=== PATIENT | female | born 1990 | race Caucasian/White ===

== ENCOUNTER 2025-02-15 11:50 | Inpatient (IN) | payer BC ==
[2025-02-15] MEDS ORDERED: Sodium Chloride 0.9% 10 ML Syringe FLUSH PRN (14:04)
[2025-02-15] MEDS ORDERED: Water For Irrigation,Sterile 1,000 ML Container IRR PRN (14:04)
[2025-02-15] MEDS ORDERED: Butorphanol 1 MG/ML SDV IVPUSH PRN (14:04)
[2025-02-15] MEDS ORDERED: Carboprost Tromethamine 250 MCG/1 mL Vial IM PRN (14:04)
[2025-02-15] MEDS ORDERED: Sodium Chloride 0.9% 2.5 ML Syringe FLUSH PRN (14:04)
[2025-02-15] MEDS ORDERED: Oxytocin/0.9 % Sodium Chloride 30 UNIT/500 ML BAG IV SCH (14:15)
[2025-02-15] MEDS: Lactated Ringers 1,000 ML IV SCH (14:30)
[2025-02-15 14:46] LABS: MEAN PLATELET VOLUME 11.2 fL (9.4-12.3); NRBC ABSOLUTE 0.00 K/uL (0.00-0.02); NRBC PERCENT 0.0 /100WBC (0.0-0.2); PLATELET COUNT,PLT 171 K/uL (150-400); RED BLOOD CELL COUNT 4.06 M/uL (4.10-5.30); WHITE BLOOD CELL COUNT,WBC 17.56 K/uL (3.9-11.3)
[2025-02-15] MEDS: Ropivacaine HCl/PF 400 MG in Premix Bag 1 BAG EPIDUR SCH (15:11)
[2025-02-15] MEDS ORDERED: ePHEDrine 50 MG/ML SDV IVPUSH PRN (15:18)
[2025-02-15] MEDS ORDERED: dexmedeTOMIDine HCl 200 MCG/2 ML SDV EPIDUR SCH (15:30)
[2025-02-16] MEDS ORDERED: Terbutaline 1 MG/ML SDV SUBCUT PRN (00:25)
[2025-02-16] MEDS: Oxytocin/0.9 % Sodium Chloride 30 UNIT/500 ML BAG IV SCH (00:33)
[2025-02-16] MEDS: Ondansetron 4 MG/2 ML SDV IVPUSH PRN (09:19)
[2025-02-16] MEDS: dexmedeTOMIDine HCl 200 MCG/2 ML SDV ONE (09:40)
[2025-02-16] MEDS: Ropivacaine HCl/PF 200 ML ONE (09:40)
[2025-02-16] MEDS: diphenhydrAMINE 50 MG/ML SDV IVPUSH PRN (20:07)
[2025-02-16] MEDS ORDERED: fentaNYL 100 MCG/2 ML SDV ONE (21:22)
[2025-02-16] MEDS ORDERED: dexmedeTOMIDine HCl 200 MCG/2 ML SDV ONE (21:22)
[2025-02-17] MEDS ORDERED: Ondansetron 4 MG/2 ML SDV ONE (04:58)
[2025-02-17] MEDS ORDERED: Oxytocin 10 Units/1 ML SDV ONE ×2 (04:58→06:54)
[2025-02-17] MEDS ORDERED: Ketorolac 30 MG/ML SDV ONE (04:58)
[2025-02-17] MEDS ORDERED: Ropivacaine 0.5% 5 MG/ML 30 ML SDV ONE (04:58)
[2025-02-17] MEDS ORDERED: fentaNYL 100 MCG/2 ML SDV ONE (04:58)
[2025-02-17] MEDS ORDERED: Dexamethasone Sod Phos Preservative Free 10 MG/ML Vial ONE (04:58)
[2025-02-17] MEDS ORDERED: Morphine PF 10 MG/10 ML SDV ONE (04:59)
[2025-02-17] MEDS ORDERED: Ondansetron 4 MG/2 ML SDV IVPUSH PRN ×2 (07:27→09:11)
[2025-02-17] MEDS ORDERED: Lanolin 100% Cream 7 GM Tube TOP PRN (07:27)
[2025-02-17] MEDS ORDERED: Sodium Chloride 0.9% 10 ML Syringe FLUSH PRN (07:27)
[2025-02-17] MEDS ORDERED: Carboprost Tromethamine 250 MCG/1 mL Vial IM PRN (07:27)
[2025-02-17] MEDS ORDERED: Naloxone 0.4 MG/ML SDV IVPUSH PRN (07:27)
[2025-02-17] MEDS ORDERED: Sodium Chloride 0.9% 2.5 ML Syringe FLUSH PRN (07:27)
[2025-02-17] MEDS ORDERED: Measles, Mumps & Rubella Vaccine 0.5 ML SDV SUBCUT ONE (07:27)
[2025-02-17] MEDS ORDERED: Oxytocin/0.9 % Sodium Chloride 30 UNIT/500 ML BAG IV SCH (07:30)
[2025-02-17 07:32] LABS: PH,UMBILICAL ARTERIAL 7.19 (7.18-7.38); PH,UMBILICAL VENOUS 7.26 (7.25-7.45)
[2025-02-17] MEDS ORDERED: diphenhydrAMINE 50 MG/ML SDV IVPUSH PRN (09:11)
[2025-02-17] MEDS ORDERED: Nalbuphine 10 MG/1 ML Vial IVPUSH PRN (09:11)
[2025-02-17] MEDS ORDERED: fentaNYL 100 MCG/2 ML SDV IVPUSH PRN (09:11)
[2025-02-17] MEDS ORDERED: Acetaminophen/oxyCODONE 325-5 MG Tab PO PRN (09:11)
[2025-02-17] MEDS: Ketorolac 30 MG/ML SDV IVPUSH SCH (10:55)
[2025-02-18 05:50] LABS: BASOPHILS ABSOLUTE AUTO 0.02 K/uL (0.00-0.20); BASOPHILS PERCENT AUTO 0.1 % (0.0-1.0); EOSINOPHILS ABSOLUTE AUTO 0.03 K/uL (0.00-0.45); EOSINOPHILS PERCENT AUTO 0.2 % (0.0-6.0); IMMATURE GRAN ABSOLUTE AUTO 0.10 K/uL (0.00-0.05); IMMATURE GRAN PERCENT AUTO 0.5 % (0.0-0.4); LYMPHOCYTES ABSOLUTE AUTO 1.72 K/uL (1.00-4.80); LYMPHOCYTES PERCENT AUTO 9.3 % (24.0-44.0); MEAN PLATELET VOLUME 11.1 fL (9.4-12.3); MONOCYTES ABSOLUTE AUTO 1.14 K/uL (0.00-0.80); MONOCYTES PERCENT AUTO 6.1 % (0.0-8.0); NEUTROPHILS ABSOLUTE AUTO 15.57 K/uL (1.80-7.70); NEUTROPHILS PERCENT AUTO 83.8 % (41.0-71.0); NRBC ABSOLUTE 0.00 K/uL (0.00-0.02); NRBC PERCENT 0.0 /100WBC (0.0-0.2); PLATELET COUNT,PLT 136 K/uL (150-400); RED BLOOD CELL COUNT 2.60 M/uL (4.10-5.30); WHITE BLOOD CELL COUNT,WBC 18.58 K/uL (3.9-11.3)
[2025-02-18] MEDS: Ketorolac 30 MG/ML SDV IVPUSH SCH (08:45)
[2025-02-18] MEDS: Sodium Ferric Gluconate Cmplex 125 MG in Sodium Chloride 0.9% 100 ML IV SCH (09:43)
[2025-02-19] MEDS ORDERED: Sodium Ferric Gluconate Cmplex 125 MG in Sodium Chloride 0.9% 100 ML IV SCH (09:00)
== END 2025-02-19 13:45 | disposition home or self-care (01) | DRG 540 ==
LOC: MW.OBCHECK 11:50 → MW.OB 11:50 → MW.OBCHECK 14:38 → MW.OB 14:41 → OBSVTOIN 02-17 05:54 → MW.OB 02-17 10:36
PROVIDERS: ADMIT Obstetrics & Gynecology; ATTEND Obstetrics & Gynecology
PROC: 4A1HXCZ Monitoring of Products of Conception, Cardiac Rate, External Approach (ICD-10-PCS; 2025-02-17)
PROC: 10D00Z1 Extraction of Products of Conception, Low, Open Approach (ICD-10-PCS; principal; 2025-02-17 05:44)
DX: O63.1 Prolonged second stage (of labor) (principal); O76 Abnormality in fetal heart rate and rhythm complicating labor and delivery; O77.0 Labor and delivery complicated by meconium in amniotic fluid; Z3A.40 40 weeks gestation of pregnancy; Z37.0 Single live birth; O90.81 Anemia of the puerperium; O64.0XX0 Obstructed labor due to incomplete rotation of fetal head, not applicable or unspecified
CPT/HCPCS: 01967; 01968; 36415; 51702; 59025; 59514; 64488; 82803; 84112; 85025; 85027; 86592; 86850; 86900; 86901; A9270-GY; J0166; J0456; J0665; J0690; J1100; J1200; J1885; J2274; J2371; J2405; J2590; J2795; J2916; J3010; J7120